=== PATIENT | female | born 1935 | race Caucasian/White ===

== ENCOUNTER 2019-11-16 14:30 | Inpatient (IN) ==
[2019-11-16] MEDS ORDERED: ALUM/MAG/SIMETH/LIDO VISC 1:1 30 ML BOTTLE PO STA (15:06)
[2019-11-16] MEDS ORDERED: ONDANSETRON 4 MG/2 ML VIAL IV ONE (15:06)
[2019-11-16] MEDS ORDERED: MORPHINE 4 MG/1 ML VIAL IV ONE (15:06)
[2019-11-16] MEDS ORDERED: SODIUM CHLORIDE 0.9% 500 ML IV STA (15:07)
[2019-11-16 15:19] LABS: Basophils # 0.1 10*3/uL (0.0-0.2); Basophils % 0.6 % (0.0-0.8); Eosinophils # 0.1 10*3/uL (0.0-0.87); Eosinophils % 1.7 % (0.00-10.9); Hematocrit 39.3 VOL% (35.7-47.0); Immature Granulocytes % 0.3 %; Immature Granulocytes Absolute 0.02 #; Lymphocytes # 1.2 10*3/uL (1.4-4.0); Lymphocytes % 14.9 % (21.3-54.2); Mean Corpuscular HGB Conc 33.1 GM/DL (32-36); Mean Corpuscular Volume 95.6 FL (87-102); Mean Platelet Volume 10.4 FL (9.6-12.0); Monocytes % 11.7 % (1.7-12.7); Neutrophils % 70.8 % (38.7-73.9); Platelet Count 289 T/CUMM (130-400); Red Blood Count 4.11 MC/CUMM (3.8-5.5); Red Cell Distribution Width 13.2 % (9.3-17.3); White Blood Count 7.8 T/CUMM (4-12)
[2019-11-16 15:33] LABS: INR 1.1; PT Patient Result 11.8 SECS (9.8-11.9)
[2019-11-16 15:36] LABS: Albumin 3.5 G/DL (3.4-5.0); Bilirubin,Total 0.5 MG/DL (0.2-1.0); Osmolality,Calculated 270.5 MOS/KG (273-304); Total Protein 6.8 G/DL (6.4-8.3)
[2019-11-16 15:55] LABS: Apearance,Urine CLEAR (Clear); Bilirubin,Urine Negative (Negative); Blood, Urine Negative (Negative); Glucose,Urine (UA) Negative (Negative); Hyaline Casts,Urine 1 /LPF (0-3); Ketones,Urine 5 mg/dL (Negative); Mucus,Urine Occasional /LPF (Occasional); Nitrite,Urine Negative (Negative); Protein,Urine Negative; Squamous Epithelial Cell,Urine Occasional /HPF (0-10); Urine Color Yellow (Yellow); Urine Specific Gravity 1.012 (1.001-1.035); Urine Urobilinogen < 2.0 EU/DL (0.2-1.0)
[2019-11-16] MEDS ORDERED: ONDANSETRON 4 MG/2 ML VIAL IV PRN (18:55)
[2019-11-16] MEDS ORDERED: GLUCAGON 1 MG VIAL IM PRN (18:55)
[2019-11-16] MEDS ORDERED: DEXTROSE 50% 25 GM/50 ML VIAL IV PRN (18:55)
[2019-11-16] MEDS ORDERED: ZALEPLON 5 MG CAPSULE PO PRN (18:55)
[2019-11-16] MEDS ORDERED: ALUM/MAG/SIMETH/LIDO VISC 1:1 30 ML BOTTLE PO PRN (19:03)
[2019-11-16] MEDS ORDERED: MORPHINE 4 MG/1 ML VIAL IV PRN (19:06)
[2019-11-16] MEDS: DEXTROSE 5% NACL 0.45% 1,000 ML IV SCH (19:19)
[2019-11-16] MEDS ORDERED: POLYETHYLENE GLYCOL POWDER 17 GM PACK PO PRN (20:17)
[2019-11-16] MEDS ORDERED: ENOXAPARIN 30 MG/0.3 ML SYRINGE SUBCUT SCH (21:00)
[2019-11-16] MEDS: PANTOPRAZOLE 40 MG TABLET PO SCH (21:19)
[2019-11-17] MEDS: DEXTROSE 5% NACL 0.45% 1,000 ML IV SCH ×2 (02:46→11:00)
[2019-11-17 04:53] LABS: Basophils # 0.1 10*3/uL (0.0-0.2); Basophils % 1.1 % (0.0-0.8); Eosinophils # 0.2 10*3/uL (0.0-0.87); Eosinophils % 3.3 % (0.00-10.9); Hematocrit 33.4 VOL% (35.7-47.0); Hemoglobin 10.8 GM/DL (12.0-16.0); Immature Granulocytes % 0.4 %; Immature Granulocytes Absolute 0.02 #; Lymphocytes # 1.6 10*3/uL (1.4-4.0); Lymphocytes % 27.7 % (21.3-54.2); Mean Corpuscular HGB Conc 32.3 GM/DL (32-36); Mean Corpuscular Volume 97.7 FL (87-102); Mean Platelet Volume 10.6 FL (9.6-12.0); Monocytes % 14.5 % (1.7-12.7); Platelet Count 262 T/CUMM (130-400); Red Blood Count 3.42 MC/CUMM (3.8-5.5); Red Cell Distribution Width 13.2 % (9.3-17.3); White Blood Count 5.7 T/CUMM (4-12)
[2019-11-17 05:43] LABS: Calcium 9.3 MG/DL (8.5-10.1)
[2019-11-17] MEDS ORDERED: TELMISARTAN HYDROCHLOROTHIAZIDE PO SCH (09:00)
[2019-11-17] MEDS: PANTOPRAZOLE 40 MG TABLET PO SCH (10:52)
[2019-11-17] MEDS ORDERED: SUCRALFATE 1 GM/10 ML UDCUP PO SCH (11:30)
[2019-11-17 13:17] VITALS: BP 96/56
== END 2019-11-17 13:10 | disposition home or self-care (01) | DRG 392 ==
LOC: N.ED 14:30 → N.EDINP 18:55 → N.3E 20:08
PROVIDERS: ADMIT Family Medicine; ATTEND Family Medicine